=== PATIENT | male | born 1975 | race Caucasian/White ===

== ENCOUNTER 2020-09-23 17:21 | Emergency (ER) | payer OTHER ==
[~2020-09-23 17:21] MED LIST: CEFUROXIME500 MG PO; NORCO 5-325 TA1 EACH PO
== END 2020-09-23 22:00 | disposition left against medical advice (07) ==
LOC: ER1 17:21
DX: U07.1 COVID-19 (principal); Z53.21 Procedure and treatment not carried out due to patient leaving prior to being seen by health care provider